=== PATIENT | male | born 1965 | race Caucasian/White ===

== ENCOUNTER → 2016-05-03 | Outpatient (CLI) | payer OTHER ==
[~2016-05-03] MED LIST: CEPH500C2 PO; OMEP40CA PO; OXYC-57 PO
[2016-05-03 13:51] LABS: ALT/SGPT 31 U/L (12-78); BLOOD UREA NITROGEN 12 mg/dl (7-18); BUN/CREATININE RATIO 13.3 (10-20); CARBON DIOXIDE 24 mmol/L (21-32); CHLORIDE 105 mmol/L (98-107); CREATININE 0.91 mg/dl (0.60-1.40); GLUCOSE 97 mg/dl (70-99); POTASSIUM 3.7 mmol/L (3.5-5.1); SODIUM 139 mmol/L (136-145)
[2016-05-03 13:54] LABS: AST/SGOT 14 U/L (15-37); CHOLESTEROL 182 mg/dl (0-200); CHOLESTEROL/HDL RATIO 4.6; HDL CHOLESTEROL 40 mg/dl; LDL CHOLESTEROL CALCULATED 98 mg/dl; TRIGLYCERIDES 222 mg/dl (0-150); VERY LOW DENSITY LIPOPROT CALC 44 mg/dl
[2016-05-03 14:01] LABS: BASO % 0.2 %; BASO ABS # 0.02 K/uL (0-0.2); COMPLETE YES; EOS % 1.7 %; HEMATOCRIT 42.7 % (42-52); IG% 0.2 %; LYMPH % 28.9 %; LYMPH ABS # 2.33 K/uL (1.2-3.4); MEAN CELL VOLUME 93.8 fL (80-100); MEAN CORPUSCULAR HEMOGLOBIN 33.4 pg (25-34); MEAN CORPUSCULAR HGB CONC 35.6 g/dl (32-36); MEAN PLATELET VOLUME 10.2 fL (7.4-10.4); MONO % 7.1 %; NEUT % 61.9 %; PLATELET COUNT 257 K/uL (130-400); RED BLOOD COUNT 4.55 M/uL (4.7-6.1); WHITE BLOOD COUNT 8.05 K/uL (4.8-10.8)
== END | disposition home or self-care (01) ==
LOC: C.LABMFLN 07:52
PROVIDERS: ATTEND Family Medicine
DX: E78.5 Hyperlipidemia, unspecified (principal); Z13.1 Encounter for screening for diabetes mellitus; R06.00 Dyspnea, unspecified

== ENCOUNTER → 2017-01-11 | Outpatient (CLI) | payer OTHER ==
[~2017-01-11] MED LIST changes: -CEPH500C2 PO; -OXYC-57 PO
== END | disposition home or self-care (01) ==
LOC: C.LABMFLN 09:59
PROVIDERS: ATTEND Family Medicine
DX: E78.5 Hyperlipidemia, unspecified (principal)

== ENCOUNTER → 2017-04-26 | Outpatient (CLI) | payer OTHER ==
--- NOTE | 2017-04-26 13:25 | EXERCISE STRESS ECHO ---
*NOTICE TO RECEIVING CONSTITUTION PARTY AGENCY This information is strictly Confidential and protected under [place] law. [place] law prohibits you from making any further disclosure of this information unless further disclosure is expressly permitted by the written consent of the person to whom it pertains or is authorized by law. A general authorization for the release of medical or other information is not sufficient for this purpose. Hospital accepts no responsibility if the information is made available to any other person, INCLUDING THE PATIENT. Interpretation Summary * Name: MAYA FERRARA Study Date: 04/26/2017 10:03 AM BP: 122/76 mmHg * Patient Location: [facility] HR: 66 * : 1965 (M/d/yyyy) Gender: Male Height: 71 in * Age: 51 yrs Ethnicity: [place] Weight: 272 lb * Ordering Physician: Rd Malone * Referring Physician: dR Malone * Performed By: Paula Cardona [facility] * * Reason For Study: Chest Pain * BSA: 2.4 m2 * -- Conclusions -- * Left ventricular systolic function is normal. * The left atrium is mildly dilated. * Right ventricular systolic pressure is normal. * Normal exercise echocardiogram without evidence of inducible ischemia * Hypertensive response to exercise Procedure Details * ECHOEX, CPT #[id number] * ECHO COLOR FLOW, CPT #[id number] * ECHO DOPPLER, CPT #[id number] Left Ventricular Findings with Stress * Normal exercise echocardiogram without evidence of inducible ischemia Left Ventricle * The left ventricle is normal in size. * There is normal left ventricular wall thickness. * Ejection Fraction = 60-65%. * Left ventricular systolic function is normal. * The left ventricular wall motion is normal at rest. Right Ventricle * The right ventricle is normal in size and function. Atria * The left atrium is mildly dilated. * Right atrial size is normal. Mitral Valve * The mitral valve is grossly normal. * Significant mitral regurgitation is absent. Tricuspid Valve * The tricuspid valve anatomy is normal. * There is trace tricuspid regurgitation. * Right ventricular systolic pressure is normal. Aortic Valve * The aortic valve is normal in structure and function. * The aortic valve is tricuspid. The leaflet thickness if normal. There is no aortic stenosis, and no significant insufficiency. * No hemodynamically significant valvular aortic stenosis. * There is no significant aortic regurgitation. Pericardium * There is no pericardial effusion. Stress Parameters * Normal sinus rhythm with right bundle branch block * Stress ECG: No ST changes. No arrhythmias. * Rest heart rate was '66' BPM. * Rest blood pressure was '122/76' * Maximum heart rate achieved was 153 bpm. * Maximum heart rate was 89 % of maximum age-predicted heart rate. * Maximum blood pressure was '205/82' * Total exercise time was '8:59' * Maximum exercise MET level achieved was '10.1' METS * Maximum treadmill speed was '3.4' miles per hour. * Maximum treadmill elevation was '14'% grade. * Exercise was terminated due to 'fatigue after achieving target heart rate' Left Ventricular Findings with Stress * The baseline EKG was normal sinus with right bundle branch block There are no significant ST or T-wave changes during exercise recovery Baseline echocardiogram was normal There was normal augmentation of all segments without development of wall motion abnormalities at peak exertion No symptoms reported Hypertensive response to exercise Thornton treadmill score: 9 (low risk) MMode 2D Measurements and Calculations IVSd 1.1 cm IVSs 1.5 cm LVIDd 4.4 cm LVIDs 2.9 cm LVPWd 1.1 cm LVPWs 1.5 cm IVS/LVPW 1.0 FS 35.5 % EDV(Teich) 89.3 ml ESV(Teich) 31.1 ml EF(Teich) 65.2 % EDV(cubed) 87.2 ml ESV(cubed) 23.3 ml EF(cubed) 73.2 % % IVS thick 28.6 % % LVPW thick 35.4 % LV mass(C)d 177.3 grams LV mass(C)dI 73.8 grams/m\S\2 LV mass(C)s 146.7 grams LV mass(C)sI 61.1 grams/m\S\2 SV(Teich) 58.2 ml SI(Teich) 24.2 ml/m\S\2 SV(cubed) 63.8 ml SI(cubed) 26.6 ml/m\S\2 Ao root diam 3.5 cm Ao root area 9.9 cm\S\2 ACS 1.8 cm LA dimension 4.1 cm asc Aorta Diam 3.3 cm LA/Ao 1.1 EDV(MOD-sp4) 131.2 ml ESV(MOD-sp4) 36.5 ml EF(MOD-sp4) 72.2 % EDV(MOD-sp2) 102.0 ml ESV(MOD-sp2) 43.6 ml EF(MOD-sp2) 57.2 % SV(MOD-sp4) 94.7 ml SI(MOD-sp4) 39.4 ml/m\S\2 SV(MOD-sp2) 58.4 ml SI(MOD-sp2) 24.3 ml/m\S\2 Doppler Measurements and Calculations MV E max jana 78.7 cm/sec MV A max jana 83.3 cm/sec MV E/A 0.95 MV P1/2t max jana 71.0 cm/sec MV P1/2t 57.9 msec MVA(P1/2t) 3.8 cm\S\2 MV dec slope 359.1 cm/sec\S\2 MV dec time 0.24 sec Ao V2 max 91.8 cm/sec Ao max PG 3.4 mmHg Ao max PG (full) 0.73 mmHg LV V1 max PG 2.6 mmHg LV V1 max 81.2 cm/sec PA V2 max 93.7 cm/sec PA max PG 3.5 mmHg TR max jana 146.0 cm/sec
== END | disposition home or self-care (01) ==
LOC: C.CPL 09:26
PROVIDERS: ATTEND Family Medicine
DX: R07.9 Chest pain, unspecified (principal)